=== PATIENT | male | born 1940 | race Caucasian/White ===

== ENCOUNTER → 2016-08-17 | Outpatient (CLI) | payer OTHER ==
[~2016-08-17] MED LIST: AMLO-110 PO; AMLO-114 PO; CYAN3INJ; LATA0.009 OP; LISI-461 PO; METO25TA56 NG; OMEP20CA59 PO; SYMIN160 INH; VTMB12UNK
--- NOTE | 2016-08-17 09:24 | DIAGNOSTIC IMAGING REPORT ---
CHEST 2 VIEWS ROUTINE HISTORY: Cough. COMPARISON: PET CT 02/18/2016. Chest 02/06/2016. FINDINGS: No significant change in the left upper lobe consolidation, cavitation, and volume loss. Remaining portions of the lungs are clear. There are surgical clips at the gastroesophageal junction. The heart is normal in size. No pleural effusions. No pneumothorax. Stable blunting of the left costophrenic sulcus. Emphysema. IMPRESSION: No significant change compared to the prior study. No acute process. Stable left apical consolidation, cavitation, and volume loss. Electronically signed by: Jerry Lee M.D. 08/17/2016 9:23 AM Dictated Date/Time: 08/17/2016 9:21 AM
[2016-08-17 11:47] LABS: BLOOD UREA NITROGEN 35 mg/dl (7-18); BUN/CREATININE RATIO 23.3 (10-20); CALCIUM 9.4 mg/dl (8.5-10.1); CARBON DIOXIDE 26 mmol/L (21-32); CHLORIDE 109 mmol/L (98-107); GLUCOSE 116 mg/dl (70-99); POTASSIUM 4.1 mmol/L (3.5-5.1); SODIUM 143 mmol/L (136-145)
== END | disposition home or self-care (01) ==
LOC: C.RAD1850 08:49
PROVIDERS: ATTEND Allergy & Immunology Allergy
DX: R05 Cough (principal); J98.4 Other disorders of lung

== ENCOUNTER → 2016-08-18 | Outpatient (CLI) | payer OTHER | END | disposition home or self-care (01) | LOC: C.LAB1850 08:22 | PROVIDERS: ATTEND Internal Medicine Pulmonary Disease | DX: J44.9 Chronic obstructive pulmonary disease, unspecified (principal) ==

== ENCOUNTER → 2016-08-21 | Outpatient (CLI) | payer OTHER ==
--- NOTE | 2016-08-21 08:03 | DIAGNOSTIC IMAGING REPORT ---
CT OF THE CHEST WITHOUT IV CONTRAST CLINICAL HISTORY: Left lung mass COMPARISON STUDY: Chest x-ray dated 08/17/2016, CT scan dated 12/28/2011 CT DOSE: 214.51 mGy.cm TECHNIQUE: CT of the thorax was performed from the thoracic inlet to the lung bases. Images are reviewed in the axial, sagittal, and coronal planes. IV contrast was not administered for this examination. FINDINGS: Thyroid: Imaged portions of the thyroid gland are normal in appearance. Thoracic aorta: The thoracic aorta is normal in course and caliber, noting standard 3 vessel arch anatomy. There are extensive atheromatous changes within the proximal abdominal aorta with a heavily calcified lumen Heart: The heart is normal in size and configuration, without pericardial effusion. Lungs and pleural spaces: There is left upper lobe volume loss and bronchiectasis. There is a 22 mm left apical cavity containing a 13 mm nodule. There is a pectus deformity. There are mild emphysematous changes. There are few tiny calcified right lung granulomas. Mediastinum: There is no mediastinal lymphadenopathy. Anahi: There is no evidence of pathologic hilar adenopathy given the limitations of a noncontrast study Axilla: Clear. Upper abdomen: Partially visualized upper abdominal viscera is within normal limits. Skeletal structures: There are no lytic or blastic osseous lesions. IMPRESSION: 1. Persistent left upper lobe volume loss with cardiac and mediastinal shift to the left 2. Left upper lobe consolidation and bronchiectatic change 3. 22 mm left apical cavity containing a 13 mm nodule. This could represent a mycetoma 4. Mild left-sided pleural thickening with scattered left pleural calcifications 5. Pectus excavatum deformity 6. Severe atheromatous changes involving the proximal abdominal aorta, with a heavily calcified lumen. A high-grade aortic stenosis or occlusion is suspected. Electronically signed by: Julio Streeter M.D. 08/21/2016 8:01 AM Dictated Date/Time: 08/21/2016 7:54 AM
== END | disposition home or self-care (01) ==
LOC: C.CTS 07:36
PROVIDERS: ATTEND Physician Assistant Medical
DX: J98.4 Other disorders of lung (principal); R91.8 Other nonspecific abnormal finding of lung field; J94.8 Other specified pleural conditions; Q67.6 Pectus excavatum

== ENCOUNTER 2016-09-23 04:54 | Day surgery (SDC) | payer OTHER ==
[2016-09-14 08:53] VITALS: BMI 15.0
--- NOTE | 2016-09-14 09:22 | PAT Medication Instructions ---
Service Date Sep 14, 2016. Current Home Medication List Amlodipine (Norvasc), 10 MG PO QAM Budesonide/Formoterol Fumarate (Symbicort 160/4.5 Inhaler ), 2 PUFFS INH BID Latanoprost (Xalatan 0.005% Oph Cari), 1 DROP OP HS Lisinopril (Zestril), 15 MG PO QAM Omeprazole (Prilosec), 20 MG PO Q2D Medication Instructions For Your Scheduled Surgery - Hold the following medications the morning of surgery: Lisinopril (Zestril), 15 MG PO QAM - Take the following medications the morning of surgery with a sip of water OTHERWISE NOTHING TO EAT OR DRINK AFTER MIDNIGHT: Omeprazole (Prilosec), 20 MG PO Q2D Amlodipine (Norvasc), 10 MG PO QAM Budesonide/Formoterol Fumarate (Symbicort 160/4.5 Inhaler ), 2 PUFFS INH BID - Take the following medications as scheduled the night before surgery: Budesonide/Formoterol Fumarate (Symbicort 160/4.5 Inhaler ), 2 PUFFS INH BID Latanoprost (Xalatan 0.005% Oph Cari), 1 DROP OP HS If you have any questions please call us at [phone] or [phone] or [phone]
[2016-09-14 09:56] LABS: BASO % 0.8 %; BASO ABS # 0.07 K/uL (0-0.2); COMPLETE YES; EOS % 3.9 %; HEMATOCRIT 39.7 % (42-52); IG% 0.7 %; LYMPH % 13.1 %; LYMPH ABS # 1.18 K/uL (1.2-3.4); MEAN CELL VOLUME 94.1 fL (80-100); MEAN CORPUSCULAR HEMOGLOBIN 31.3 pg (25-34); MEAN CORPUSCULAR HGB CONC 33.2 g/dl (32-36); MEAN PLATELET VOLUME 9.1 fL (7.4-10.4); MONO % 7.2 %; NEUT % 74.3 %; PLATELET COUNT 346 K/uL (130-400); RED BLOOD COUNT 4.22 M/uL (4.7-6.1); WHITE BLOOD COUNT 9.01 K/uL (4.8-10.8)
[2016-09-14 11:02] LABS: BUN/CREATININE RATIO 17.9 (10-20); CALCIUM 9.7 mg/dl (8.5-10.1); CREATININE 1.4 mg/dl (0.60-1.40)
[~2016-09-23] VITALS: Ht 182.9 cm; Wt 52.0 kg
[~2016-09-23 04:54] MED LIST changes: -AMLO-114 PO; -CYAN3INJ; -METO25TA56 NG; -VTMB12UNK
[2016-09-23 05:37] VITALS: BP 140/70; PULSE 106; TEMP 37; O2SAT 96; Ht 182.9 cm; Wt 52.0 kg
[2016-09-23] MEDS ORDERED: LACTATED RINGER'S 1000ML 1,000 ML IV SCH (06:00)
[2016-09-23] MEDS ORDERED: KETAMINE HCL INJ 50 MG/ML 10 ML VIAL ONE (07:06)
[2016-09-23] MEDS ORDERED: FENTANYL CITRATE INJ 50 MCG/1 ML 2 ML VIAL ONE (07:06)
[2016-09-23] MEDS ORDERED: MIDAZOLAM HCL 1 MG/ML 2ML VIAL ONE (07:06)
--- NOTE | 2016-09-23 07:14 | History & Physical Bridge Note ---
H&P Re-Evaluation Bridge Note: I have examined the patient, reviewed the History & Physical and in the interval since the performance of the History & Physical I have noted the following changes of clinical significance: No changes noted
--- NOTE | 2016-09-23 07:42 | Discharge Instructions ---
Discharge Instructions Date of Service Sep 23, 2016. Visit Reason for Visit: Lung Mass Discharge Discharge Diagnosis / Problem: Lung Mass Discharge Goals Goal(s): Learn about illness Activity Recommendations Activity Limitations: resume your previous activity (in 24 hours) Anesthesia . Post Anesthesia Instructions: If you have had General Anesthesia or IV Sedation: * Do not drive today. * Resume driving when surgeon permits. * Do not make important decisions or sign legal documents today. * Call surgeon for: 1. Temperature elevations greater than 101 degrees F. 2. Uncontrollable pain. 3. Excessive bleeding. 4. Persistent nausea and vomiting. 5. Medication intolerance (nausea, vomiting or rash). * For nausea and vomiting use only clear liquids such as: tea, soda, bouillon until nausea subsides, then gradually increase diet as tolerated. * If you have any concerns or questions, call your surgeon's office. If physician is unavailable and it is an emergency, call 911 or go to the nearest emergency room. . Instructions / Follow-Up Instructions / Follow-Up 1. Keep your scheduled appointment with Dr. Rosado on October 01 @ 10:15. 2. you may cough up some blood. call physician if excessive amount noted. Diet Recommendations Recommended Home Diet: resume previous diet Pending Studies Studies pending at discharge: no Medical Emergencies . Who to Call and When: Medical Emergencies: If at any time you feel your situation is an emergency, please call 911 immediately. . Non-Emergent Contact Non-Emergency issues call your: Surgeon Call Non-Emergent contact if: you have a fever, temperature is above 101.5 . . "Provider Documentation" section prepared by Kannan Rosenbaum. .
[2016-09-23] MEDS ORDERED: ONDANSETRON INJ 2 MG/ML 2 ML VIAL ONE (07:57)
[2016-09-23] MEDS ORDERED: GLYCOPYRROLATE INJ 0.2 MG/ML VIAL ONE (07:57)
[2016-09-23] MEDS ORDERED: CISATRACURIUM BESYLATE IV SOLN 2 MG/ML 10 ML VIAL ONE (07:57)
[2016-09-23] MEDS ORDERED: DEXAMETHASONE SOD INJ 4 MG/ML VIAL ONE (07:57)
[2016-09-23] MEDS ORDERED: CLINDAMYCIN PHOS 150 MG/ML 2 ML VIAL ONE (07:57)
[2016-09-23] MEDS ORDERED: LIDOCAINE HCL 2% 2 ML VIAL (20MG/ML) ONE (07:57)
[2016-09-23] MEDS ORDERED: EpHEDrine SULFATE 50MG/5ML SYR ONE (07:57)
[2016-09-23] MEDS ORDERED: PROPOFOL IV EMULSION 10 MG/ML 20 ML VIAL IV ONE (07:57)
[2016-09-23] MEDS ORDERED: LARYING-O-JET KIT (LTA) EXT ONE ×2 (07:57)
[2016-09-23] MEDS ORDERED: NEOSTIGMINE METHYLSULFATE 5 MG/5 ML SYR ONE (07:57)
--- NOTE | 2016-09-23 08:24 | DIAGNOSTIC IMAGING REPORT ---
INTRAOPERATIVE RADIOGRAPH CLINICAL HISTORY: Navigational bronchoscopy. Fluoroscopy time: 202 seconds. FINDINGS: A single spot fluoroscopic view of the chest is presented. The bronchoscope projects over the left lung. IMPRESSION: Intraoperative image from navigational bronchoscopy procedure. See operative report for detailed findings. Electronically signed by: Walter Roger M.D. 09/23/2016 8:22 AM Dictated Date/Time: 09/23/2016 8:20 AM
--- NOTE | 2016-09-23 09:11 | Anesthesiology Progress Note ---
Anesthesia Post Op Note Date & Time Sep 23, 2016 at 09:10 Vital Signs Pain Intensity: 0 Vital Signs Past 12 Hours Date Time Temp Pulse Resp B/P Pulse Ox O2 Delivery O2 Flow Rate FiO2 09/23/16 08:56 36.8 79 16 130/66 94 Room Air 09/23/16 08:41 88 22 09/23/16 08:41 88 22 94 09/23/16 08:40 130/66 09/23/16 08:36 89 13 09/23/16 08:36 89 13 99 09/23/16 08:35 130/68 09/23/16 08:31 87 13 09/23/16 08:31 87 13 99 09/23/16 08:30 137/73 09/23/16 08:27 137/75 09/23/16 08:26 92 8 09/23/16 08:26 91 8 99 09/23/16 08:26 36.7 89 16 137/75 98 Mask 10 09/23/16 05:37 37 106 20 140/70 96 Room Air Notes Mental Status: alert / awake / arousable, participated in evaluation Pt Amnestic to Procedure: Yes Nausea / Vomiting: adequately controlled Pain: adequately controlled Airway Patency, RR, SpO2: stable & adequate BP & HR: stable & adequate Hydration State: stable & adequate Anesthetic Complications: no major complications apparent
--- NOTE | 2016-09-23 09:14 | DIAGNOSTIC IMAGING REPORT ---
CHEST ONE VIEW PORTABLE CLINICAL HISTORY: Lung mass. Status post fiber optic bronchoscopy. COMPARISON STUDY: 08/17/2016 FINDINGS: Postsurgical changes are visualized on the left. There is left lung volume loss. There is left apical pleural thickening with superior hilar retraction. There is a small amount of aerated lung within the left apical opacity. This remains unchanged. The right lung is clear. There is no pneumothorax.[ IMPRESSION: 1. Stable left upper lobe consolidation volume loss and stable left apical cavity 2. No evidence of pneumothorax status post bronchoscopy Electronically signed by: Julio Streeter M.D. 09/23/2016 9:12 AM Dictated Date/Time: 09/23/2016 9:10 AM
[2016-09-23] MEDS ORDERED: EpHEDrine SULFATE INJ 50 MG/ML AMP IV PRN (09:15)
[2016-09-23] MEDS ORDERED: ATROPINE SULFATE 0.1 MG/ML 5ML SYR IV PRN (09:15)
--- NOTE | 2016-09-23 09:17 | OPERATIVE REPORT ---
DATE OF OPERATION: 09/23/2016 PREOPERATIVE DIAGNOSIS: Consolidation left upper lobe. POSTOPERATIVE DIAGNOSIS: Same. PROCEDURE: 1. Endobronchial ultrasound with biopsy. 2. Navigational bronchoscopy with biopsy and cultures. 3. Collection of bronchial washings. SURGEON: Dr. Rosado. LEAK HUNTER: Emir Lewis, respiratory therapy. ANESTHESIA: General anesthesia endotracheal intubation. INDICATION FOR PROCEDURE AND FINDINGS: Romulo Flores is a 75-year-old male who has a consolidative process involving his entire left upper lobe which appears to be inflammatory. I performed a navigational bronchoscopy in the past and it appeared to be simply inflammation; however, he has been followed in my office for several months and several months ago he had improved and I thought his CT scan, while markedly abnormal, was a bit better. I saw him in the office recently and he has worsened. He has lost weight. His cough is worse. I told him I would like to do another navigational bronchoscopy in attempt to gain cultures so that we can have culture directed therapy. In addition, I am considering operating on this man if he does not improve and simply doing a left upper lobectomy to eradicate this inflammatory process. Unfortunately on 11/14/2016 the patient underwent an uncomplicated endobronchial ultrasound. He really had very little in the way of lymph nodes which was surprising. I did biopsy a level 10 node on the left; however, he did not even have any subcarinal nodes which were enlarged. I looked several times and really not see any endobronchial areas, so I stopped after just biopsying the level 10. I then went out into the consolidated lobe and did brushings, needle biopsies and several forceps biopsies which we sent specifically for culture. 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 PROCEDURE: The patient brought to the operating room and laid in supine position. General anesthesia induced and endotracheal intubation was performed. After appropriate timeout had been given and prophylactic antibiotics have been given, the endobronchial ultrasound was then placed. In going down I closely inspected the airways and he had some yellow mucus in the left mainstem bronchus so I did bronchial washings and suctioned this out and sent this to the lab. I then closely inspected the airways. His left upper lobe airways are normal. It appears he does have bronchiectasis. I did not see any masses or endobronchial lesions. I then used the ultrasound and closely inspected level 7 area and really did not see much in the way of areas to biopsy nor did I see much in the left level 4 areas. I finally biopsied the level 10 node which was very small being subcentimeter, however I biopsied this couple of times. I really did not see much else to go after. Specifically level 11 and level 4 on the left were not enlarged. At this point, I elected to stop and switch over to the regular flexible bronchoscope. I suctioned out some blood from my biopsy sites and then closely inspected the airways. I went down on the right bronchial tree and inspected the upper lobe, middle lobe and lower lobe bronchi and really did not see much in the way of sputum or any abnormalities. In going back to the left, the anatomy is abnormal. There was some yellow mucus and I irrigated out old blood. I then placed a navigational computer probe from the ki work system and registered the airways. Navigational probe was then placed and going up into the left upper lobe I went directly into the consolidated area. Brushings were taken and slides made which showed reactive tissue. There was no evidence of malignancy that we saw. I also did multiple needle biopsies and then did forceps biopsies too. These were done from several different areas and I did appear to get into the mycetoma with the forceps. We had very little in the way of bleeding. I then did washings of this particular superior segment of the upper lobe and we irrigated this out through the navigational probe catheter and suctioned this back and sent this to the lab for cultures. I then thoroughly irrigated up both airways and really saw very little in the way of any bleeding. He tolerated it quite well. It should be noted I did several biopsies with the forceps and with the needles. He tolerated it well. I attest to the content of the Intraoperative Record and any orders documented therein. Any exceptio ns are noted below.
[2016-09-23 09:18] VITALS: BP 132/65; PULSE 80; TEMP 36.4; O2SAT 95
[2016-09-23 09:48] VITALS: BP 139/72; PULSE 81; O2SAT 94
[2016-09-23 10:20] VITALS: BP 141/66; PULSE 98; TEMP 36.4; O2SAT 95
== END 2016-09-23 10:21 | disposition home or self-care (01) ==
LOC: C.ACU 04:54
PROVIDERS: ATTEND Surgery
DX: J47.0 Bronchiectasis with acute lower respiratory infection (principal); J44.9 Chronic obstructive pulmonary disease, unspecified; I10 Essential (primary) hypertension; I73.9 Peripheral vascular disease, unspecified; R73.03 Prediabetes; H40.9 Unspecified glaucoma; Z87.09 Personal history of other diseases of the respiratory system; Z87.891 Personal history of nicotine dependence; Z79.899 Other long term (current) drug therapy; I88.9 Nonspecific lymphadenitis, unspecified

== ENCOUNTER → 2016-09-29 | Outpatient (CLI) | payer OTHER ==
[2016-09-29 13:30] LABS: BASO % 0.5 %; BASO ABS # 0.05 K/uL (0-0.2); COMPLETE YES; EOS % 3.5 %; HEMATOCRIT 42.4 % (42-52); IG% 0.6 %; LYMPH % 14.4 %; LYMPH ABS # 1.52 K/uL (1.2-3.4); MEAN CELL VOLUME 94.9 fL (80-100); MEAN CORPUSCULAR HEMOGLOBIN 31.3 pg (25-34); MEAN PLATELET VOLUME 9.7 fL (7.4-10.4); PLATELET COUNT 257 K/uL (130-400); RED BLOOD COUNT 4.47 M/uL (4.7-6.1); WHITE BLOOD COUNT 10.56 K/uL (4.8-10.8)
[2016-09-29 14:53] LABS: ALB/GLOB RATIO 0.8 (0.9-2); ALKALINE PHOSPHATASE 85 U/L (45-117); ALT/SGPT 25 U/L (12-78); AST/SGOT 17 U/L (15-37); BLOOD UREA NITROGEN 28 mg/dl (7-18); BUN/CREATININE RATIO 21.8 (10-20); CALCIUM 9.1 mg/dl (8.5-10.1); CARBON DIOXIDE 26 mmol/L (21-32); CHLORIDE 106 mmol/L (98-107); GLUCOSE 150 mg/dl (70-99); POTASSIUM 3.8 mmol/L (3.5-5.1); SODIUM 141 mmol/L (136-145)
[2016-09-29 14:57] LABS: C-REACTIVE PROTEIN 2.84 mg/dl (0-0.29)
== END | disposition home or self-care (01) ==
LOC: C.LABPBG 10:44
PROVIDERS: ATTEND Internal Medicine Infectious Disease
DX: B44.9 Aspergillosis, unspecified (principal)

== ENCOUNTER → 2016-10-28 | Outpatient (CLI) | payer OTHER ==
--- NOTE | 2016-10-28 09:19 | DIAGNOSTIC IMAGING REPORT ---
TWO VIEW CHEST CLINICAL HISTORY: Atelectasis. Lung mass. Dyspnea.. FINDINGS: PA and lateral chest radiographs are compared to study dated 09/23/2016 and correlated with chest CT dated 08/21/2016. The PA view is degraded by patient rotation. The cardiomediastinal silhouette is unremarkable. There is atherosclerotic calcification of the thoracic aorta. Emphysema and chronic interstitial thickening are again noted. There is unchanged volume loss with atelectasis/fibrosis identified in the left upper lobe. There is volume loss in the left lung with compensatory hyperinflation of the right lung. Foci of cavitation at the left apex are similar to previous. The right lung is grossly clear. No pleural effusion is identified. There is no pneumothorax. The skeletal structures are osteopenic. The bony thorax appears intact. Degenerative change is seen throughout the thoracic spine. A pectus deformity is noted. Surgical clips are seen at the gastroesophageal junction. IMPRESSION: 1. Emphysema. 2. Consolidation/fibrosis/atelectasis of the left upper lung with foci of cavitation and associated volume loss are similar to previous. 3. The right lung appears clear. Electronically signed by: Walter Roger M.D. 10/28/2016 9:18 AM Dictated Date/Time: 10/28/2016 9:15 AM
== END | disposition home or self-care (01) ==
LOC: C.RAD 08:43
PROVIDERS: ATTEND Surgery
DX: J98.11 Atelectasis (principal); J43.9 Emphysema, unspecified; R91.8 Other nonspecific abnormal finding of lung field

== ENCOUNTER → 2016-12-14 | Outpatient (CLI) | payer OTHER ==
--- NOTE | 2016-12-14 14:39 | DIAGNOSTIC IMAGING REPORT ---
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 TECHNIQUE: Multidetector CT angiography was performed without the use of intravenous contrast. IV contrast: None. COMPARISON: 08/21/2016. CT DOSE: The estimated cumulative dose is 214.15 mGy.cm. FINDINGS: Can Sorter topogram: Consolidation with focal gas of the left apex. On soft tissue windows, normal thyroid and thoracic inlet. No axillary, supraclavicular, or mediastinal lymphadenopathy. Evaluation for hilar lymphadenopathy limited without contrast. Atherosclerosis of the aortic arch with an aberrant right subclavian artery noted. Normal heart size. No pericardial or pleural effusion. Leftward mediastinal shift. Upper abdomen remarkable for significant calcified atherosclerotic plaque covering the majority of the lumen of the infrarenal abdominal aorta (series 2 image 70). This is unchanged in appearance. On lung windows, consolidation of the left apex. No surrounding pleural fluid is evident by density. Within the consolidation is a cavity containing globular debris. Surrounding branching varicoid bronchiectasis. The cavity measures approximately 3 cm, previously 2.5 cm, and contains and a 1.1 cm focus of soft tissue density. This appearance is essentially unchanged from prior exam. Pleural thickening noted bilaterally, on the left with calcification. Distortion of the left lung. No other focal infiltrate. Remaining airways patent. On bone windows, pectus excavatum deformity within the anterior posterior diameter from the posterior cortical aspect of the sternum to the anterior aspect of the vertebral body measuring 4.7 cm. Corresponding intrathoracic diameter at this level 26.5 cm. Multilevel degenerative changes. IMPRESSION: 1. Persistent left apical consolidation with stable to slight interval enlargement of the left apical cavity containing a 1.1 cm soft tissue density focus. This is consistent with a mycetoma/aspergilloma. 2. Stable left mediastinal shift. 3. Pleural thickening and calcification could suggest prior asbestos exposure. 4. Atherosclerosis with high-grade stenosis of the abdominal aorta. Electronically signed by: Gordon Ascencio M.D. 12/14/2016 2:37 PM Dictated Date/Time: 12/14/2016 2:27 PM
== END | disposition home or self-care (01) ==
LOC: C.CTS 13:53
PROVIDERS: ATTEND Surgery
DX: B44.9 Aspergillosis, unspecified (principal); I70.0 Atherosclerosis of aorta

== ENCOUNTER → 2017-01-05 | Outpatient (CLI) | payer OTHER ==
[2017-01-05 12:37] LABS: BASO % 0.1 %; BASO ABS # 0.01 K/uL (0-0.2); COMPLETE YES; EOS % 0.7 %; IG% 1.2 %; LYMPH % 19.1 %; MEAN CELL VOLUME 94.9 fL (80-100); MEAN CORPUSCULAR HEMOGLOBIN 31.6 pg (25-34); MEAN CORPUSCULAR HGB CONC 33.3 g/dl (32-36); MEAN PLATELET VOLUME 10.4 fL (7.4-10.4); MONO % 9.8 %; NEUT % 69.1 %; PLATELET COUNT 157 K/uL (130-400); RED BLOOD COUNT 4.74 M/uL (4.7-6.1); WHITE BLOOD COUNT 7.33 K/uL (4.8-10.8)
[2017-01-05 14:38] LABS: ALT/SGPT 43 U/L (12-78); AST/SGOT 23 U/L (15-37); BLOOD UREA NITROGEN 37 mg/dl (7-18); BUN/CREATININE RATIO 26.3 (10-20); CALCIUM 9.4 mg/dl (8.5-10.1); CARBON DIOXIDE 35 mmol/L (21-32); CHLORIDE 101 mmol/L (98-107); GLUCOSE 103 mg/dl (70-99); SODIUM 143 mmol/L (136-145)
[2017-01-05 14:40] LABS: ALKALINE PHOSPHATASE 63 U/L (45-117)
== END | disposition home or self-care (01) ==
LOC: C.LAB1850 09:55
PROVIDERS: ATTEND Internal Medicine Infectious Disease
DX: B44.9 Aspergillosis, unspecified (principal)

== ENCOUNTER → 2017-06-28 | Outpatient (CLI) | payer OTHER ==
--- NOTE | 2017-06-28 09:19 | DIAGNOSTIC IMAGING REPORT ---
(CHEST) THORAX WITHOUT CLINICAL HISTORY: 76 years-old Male presenting with R91.1 Lung [id number]. TECHNIQUE: Multidetector CT imaging of the chest was performed without the use of intravenous contrast. IV contrast: None. A dose lowering technique was used consistent with the principles of ALARA (as low as reasonably achievable). COMPARISON: 12/14/2016. CT DOSE (mGy.cm): The estimated cumulative dose is 220.00 mGy.cm. FINDINGS: Hvac Refrigeration Technician topogram: Stable chronic changes. On soft tissue windows, normal thyroid and thoracic inlet. No axillary, supraclavicular, or mediastinal lymphadenopathy. Evaluation of the miranda limited without intravenous contrast. Atherosclerosis of the aorta with an aberrant right subclavian artery. Normal heart size. Coronary artery calcification. No pericardial or pleural effusion. Calcified pleural plaques noted. Chronic leftward mediastinal shift. Surgical clips at the level of the aortic hiatus unchanged from prior. Extensive calcified atherosclerotic plaque narrowing the lumen of the abdominal aorta, unchanged. Bilateral gynecomastia. On lung windows, chronic volume loss of the left upper lobe with consolidation, bronchiectasis, and cavitary changes as on prior exam. Debris within the cavity is again noted. The cavity measures approximately 2.7 cm and the debris measures approximately 1 cm. This is not significantly changed from prior. Overall consolidation has not changed in distribution or severity. Trace right emphysema. Minimal subpleural nodularity in the anterolateral right upper lobe possibly scarring, unchanged. No new focal infiltrate. Focal nodularity along the anterior upper trachea new from prior and may represent adherent debris. On bone windows, multilevel degenerative changes of the thoracic spine. Pectus excavatum deformity. IMPRESSION: 1. No significant change in appearance of the left upper lobe consolidation and left apical cavity with internal debris. The appearance is most consistent with a mycetoma/aspergilloma. No new focal infiltrate. 2. Calcified pleural plaques suggest a history of asbestos exposure. Electronically signed by: Gordon Ascencio M.D. 06/28/2017 9:18 AM Dictated Date/Time: 06/28/2017 9:02 AM
== END | disposition home or self-care (01) ==
LOC: C.CTS 08:38
PROVIDERS: ATTEND Surgery
DX: B44.9 Aspergillosis, unspecified (principal); R91.1 Solitary pulmonary nodule; R91.8 Other nonspecific abnormal finding of lung field; J92.9 Pleural plaque without asbestos